=== PATIENT | female | born 1955 | race Caucasian/White ===

== ENCOUNTER 2020-12-08 18:52 | Emergency (ER) | payer MEDICARE, OTHER, SELFPAY ==
--- NOTE | 2020-12-08 19:14 | ED.HEATRA ---
HPI - Head Injury General Chief complaint: Fall Stated complaint: Fall Time Seen by Provider: 12/08/20 19:15 Source: patient, family and RN notes reviewed History of Present Illness HPI Narrative: Patient is a 65-year-old female who presents the urgent care with a family friend with complaints of a fall 2 days ago. Patient states that she tripped over her own feet falling backwards and hitting her head on the concrete. Patient states that she has a history of two strokes and deficits include weakness, shuffling, hard of hearing and a slight aphasia. Otherwise patient is alert and oriented x4. Patient lives at home alone. Denies of any changes in weakness, denies of loss of consciousness during the incident, denies of blurry vision or changes in vision. Family friend states that she is her normal . Patient states that the only reason she came is because the wound continue to bleed again . Patient states she believes that she picked off a scab which caused the area to bleed. Patient is on a blood thinner. No other acute complaints. No acute distress noted. Patient and family friend aware of the plan of care. Some parts of this dictation were generated by voice recognition software and may contain typographical and/or grammatical inaccuracies. Related Data Home Medications Medication Instructions Recorded Confirmed atorvastatin 80 mg PO DAILY 12/08/20 12/08/20 citalopram 10 mg PO DAILY 12/08/20 12/08/20 clopidogrel 75 mg PO DAILY 12/08/20 12/08/20 linagliptin [Tradjenta] 5 mg PO DAILY 12/08/20 12/08/20 metformin 500 mg PO BID 12/08/20 12/08/20 pioglitazone 15 mg PO DAILY 12/08/20 12/08/20 Allergies Allergy/AdvReac Type Severity Reaction Status Date / Time Sulfa (Sulfonamide Allergy Hives Verified 12/08/20 19:31 Antibiotics) Review of Systems Review of Systems: Narrative: CONSTITUTIONAL: Denies fever, chills, or sweats. EYES: Denies visual changes, redness, or discharge. ENT: Denies rhinorrhea, congestion, sore throat, or otalgia. CARDIOVASCULAR: Denies chest pain, palpitations, or edema. RESPIRATORY: Denies cough or dyspnea. GASTROINTESTINAL: Denies abdominal pain, nausea, vomiting, or diarrhea. GENITOURINARY: Denies dysuria or hematuria. SKIN: Reports of a bleeding wound to the back of the head due to fall MUSCULOSKELETAL: Denies back pain, joint pain, or myalgia. NEUROLOGIC: Denies headache, numbness, or weakness. All other systems reviewed are negative, except as documented in HPI. PMFSH Comments At the time of my signature, I reviewed and agree with the nursing past medical, surgical, social, and family history. There is no relevant family history pertinent to the patient complaint. Exam Narrative: Exam Narrative: GENERAL: This is a well-nourished, well-developed patient, in no apparent distress. HEAD: normocephalic, atraumatic. EYES: PERRL. Sclera clear/white. Vision is grossly intact. EARS: External ears normal, NOSE: External nose normal with no obvious nasal discharge, nares without redness, no rhinorrhea. THROAT: Mucous membranes moist NECK: Neck supple CARDIOVASCULAR: Regular rate and rhythm without murmurs, gallops, or rubs. RESPIRATORY: Clear to auscultation. Breath sounds equal bilaterally. No wheezes, rales, or rhonchi. SKIN: 1 cm jagged puncture noted to the right sided crown of the head with a 6 x 6 cm soft hematoma, bloody drainage NEURO: awake, alert, and oriented to person, place and time. No changes in patient's normal mental status according to family friend. Bilateral loan officer within patient's normal limits. No obvious neuro deficits based on patient's normal EXTREMITIES: No clubbing, cyanosis, or edema. Course Vital Signs Vital signs: Vital Signs Temperature 97.0 F L 12/08/20 19:15 Pulse Rate 124 H 12/08/20 19:15 Respiratory Rate 20 12/08/20 19:15 Blood Pressure 130/112 H 12/08/20 19:15 Pulse Oximetry 100 12/08/20 19:15 Temperature 97.0 F L 12/08/20 19:15 Pulse
[2020-12-08 19:15] VITALS: BP 130/112; PULSE 124; RESP 20; TEMP 36.1; O2SAT 100
[2020-12-08 19:30] VITALS: BP 130/90; PULSE 100
== END 2020-12-08 20:00 | disposition left against medical advice (07) ==
PROVIDERS: Emergency Provider Nurse Practitioner Family; PCP Internal Medicine
DX: S01.01XA Laceration without foreign body of scalp, initial encounter (principal); W01.0XXA Fall on same level from slipping, tripping and stumbling without subsequent striking against object, initial encounter; I69.320 Aphasia following cerebral infarction; I69.359 Hemiplegia and hemiparesis following cerebral infarction affecting unspecified side; E78.00 Pure hypercholesterolemia, unspecified; E11.9 Type 2 diabetes mellitus without complications; F32.9 Major depressive disorder, single episode, unspecified
CPT/HCPCS: 99213; G0463